=== PATIENT | male | born 2005 | race Caucasian/White ===

== ENCOUNTER 2024-09-21 09:49 | Emergency (ER) | payer OTHER, SELFPAY ==
--- NOTE | 2024-09-21 09:52 | ED.URI ---
HPI - URI/Sore Throat General Chief Complaint: Dental/Oral Stated Complaint: dental pain , rt ear pain Time Seen by Provider: 09/21/24 09:52 Source: patient Mode of arrival: ambulatory Limitations: no limitations History of Present Illness HPI Narrative: Elliot is a 19-year-old male patient presenting to the clinic today with complaints of right upper dental pain/ear pain/sinus pressure. He reports that this has been going on for 2 and half weeks. Denies any runny nose but feels as though he is very congested. No known fever, chills, or body aches. Allergy to penicillin-thinks he may had a rash when he was a baby MD elicited complaint: nasal congestion, sinus pain and other (Dental pain, ear pain) Related Data Allergies Allergy/AdvReac Type Severity Reaction Status Date / Time Penicillins Allergy Unknown Verified 09/21/24 10:33 Review of Systems Review of Systems: Pertinent positives per HPI. Patient denies any fever, chills, rash, headache, visual changes, dizziness, cough, shortness of breath, chest pain, palpitations, nausea, vomiting, diarrhea, constipation, abdominal pain, or any urinary issues. PMFSH Comments At the time of my signature, I reviewed and agree with the nursing past medical, surgical, social, and family history. There is no relevant family history pertinent to the patient complaint. Exam Narrative: General: Well-developed, well nourished, in no apparent distress Head: Normocephalic, atraumatic Eyes: Pupils equally round and reactive to light bilaterally, EOM intact, sclera and conjunctive clear, no discharge, lids normal Ears: TMs intact and congested ear canals ceruminous, no drainage, grossly hearing normal. Nose: Nares patent, clear nasal discharge, moderate inflammation, maxillary sinus tenderness. Mouth: Oral pharynx without lesions or masses, good dentition, MMM. Postnasal drip Neck: Supple, trachea midline, no enlargement of anterior or posterior cervical nodes, no thyroid masses or goiter palpable. Cardio: Regular rate and rhythm, s1 and s2 normal, no murmur appreciated. Resp: Clear to auscultation bilaterally, no rhonchi, rales, wheezing or rubs Course Course Emergency Course: Portions of this record may have been created with voice recognition software. Level of Care: Express Care Visit Vital Signs Vital signs: Vital Signs Temperature 37.1 C 09/21/24 10:36 Pulse Rate 96 09/21/24 10:36 Respiratory Rate 16 09/21/24 10:36 Blood Pressure 127/91 H 09/21/24 10:36 Pulse Oximetry 100 09/21/24 10:36 Temperature 37.1 C 09/21/24 10:36 Pulse Rate 96 09/21/24 10:36 Respiratory Rate 16 09/21/24 10:36 Blood Pressure 127/91 H 09/21/24 10:36 Pulse Oximetry 100 09/21/24 10:36 Vital signs reviewed MDM - URI/Sore Throat MDM Narrative Medical decision making narrative: At the time of visit patient is resting comfortably on the exam table. Patient appears to be nontoxic. Plan: I suspect patient has acute sinusitis. Prescription for clindamycin and prednisone was sent to the pharmacy. Supportive measures were discussed with the patient and they voiced understanding discharge instructions and agrees to treatment plan. Return precautions reviewed Differential Diagnosis Differential diagnosis: Likely upper respiratory infection, otitis media, sinusitis, viral infection, bronchitis, influenza, pharyngitis and other (COVID) Discharge Plan Discharge Clinical Impression: Acute bacterial sinusitis Patient Disposition: Home, Self-Care Condition: Stable Instructions: Antibiotic Form, Rhinosinusitis (ED) Additional Instructions: Take prescription medications only as prescribed-prednisone and clindamycin Increase fluids and stay well hydrated Tylenol/motrin for pain/fever Flonase and OTC antihistamines as directed Vicks vapor rub to open sinuses Sinus rinses for congestion Cepacol spray, cough drops, throat lozenges, warm tea with honey/lemon, gargle salt water to soothe throat BRAT diet for diarrhea Clear liquids x 24 hours then advance as tolerated for nausea/vomiting Go to the ED if you develop a worsening in your condition- high fever not controlled by Tylenol or Motrin, dehydration, weakness, lethargy, shortness of breath, or chest pain. Follow up with your PCP in 3-5 days if symptoms persist. Prescriptions: New clindamycin HCl 300 mg capsule 300 mg PO Q8H 10 Days Qty: 30 0RF prednisone 20 mg tablet 40 mg PO DAILY 5 Days Qty: 10 0RF Follow-up/Referrals: PHYSICIAN,WARD SECRETARY [Primary Care Provider] - Time of Disposition: 10:58 Quality NIHSS Nursing Documentation ED NIHSS nursing documentation: reviewed/agree
[2024-09-21 10:36] VITALS: BP 127/91; PULSE 96; RESP 16; TEMP 37.1; O2SAT 100
== END 2024-09-21 11:05 | disposition home or self-care (01) ==
PROVIDERS: Emergency Provider Nurse Practitioner Family
DX: J01.90 Acute sinusitis, unspecified (principal)
CPT/HCPCS: 99203; G0463

== ENCOUNTER 2025-01-23 11:19 | Outpatient (CLI) | payer OTHER, SELFPAY ==
[2025-01-23 11:58] LABS: Alanine Aminotransferase 71 U/L (6-50); Albumin Level 4.8 g/dL (3.5-5.1); Alkaline Phosphatase 74 U/L (38-126); Anion Gap 12 mmol/L (4-12); Aspartate Amino Transferase 30 U/L (17-59); Bilirubin,Total 0.8 mg/dL (0.2-1.3); Blood Urea Nitrogen 13 mg/dL (9-20); Calcium 9.7 mg/dL (8.4-10.2); Carbon Dioxide 26 mmol/L (22-30); Chloride 102 mmol/L (98-107); Cholesterol 202 mg/dL (0-200); Estimated Glomerular Filt Rate > 60; Glucose 96 mg/dL (65-110); HDL Direct 47 mg/dL; Hemoglobin A1C 4.8 % (<5.7); Potassium 4.1 mmol/L (3.4-5.0); Sodium 140 mmol/L (137-145); Triglycerides 93 mg/dL (<150)
[2025-01-23 12:09] LABS: LDL Cholesterol Direct 118 mg/dL
== END 2025-01-23 11:20 | disposition home or self-care (01) ==
LOC: ANHLAB 11:20
PROVIDERS: PCP Family Medicine; Visit Provider Student in an Organized Health Care Education/Training Program
DX: Z00.00 Encounter for general adult medical examination without abnormal findings (principal); Z13.220 Encounter for screening for lipoid disorders; Z13.1 Encounter for screening for diabetes mellitus
CPT/HCPCS: 36415; 80053; 80061; 83036

== ENCOUNTER 2025-09-10 15:15 | Emergency (ER) | payer OTHER, SELFPAY ==
--- NOTE | 2025-09-10 15:16 | ED_ITS ---
HPI - URI/Sore Throat General Chief Complaint: Upper Respiratory Infection Stated Complaint: SINUS CONGESTION/PRESSURE Time Seen by Provider: 09/10/25 15:16 Source: patient Mode of arrival: ambulatory Limitations: no limitations History of Present Illness HPI Narrative: Elliot is a 20 year old female patient presenting to the clinic today with c/o sinus congestion/pressure x 2 weeks. He reports has had nasal congestion/sinus pressure over the frontal and right maxilla sinuses. Denies any fever, chills, or bodyaches. Denies any chest pain or SOB. Rates pain 4/10 currently. Has taken ibuprofen for the pain. Related Data Allergies Allergy/AdvReac Type Severity Reaction Status Date / Time Penicillins Allergy Unknown Verified 09/10/25 15:24 Review of Systems Review of Systems: Pertinent positives per HPI. Patient denies any fever, chills, rash, headache, visual changes, dizziness, cough, runny nose, sore throat, shortness of breath, chest pain, palpitations, nausea, vomiting, diarrhea, constipation, abdominal pain, or any urinary issues. PMFSH Family History Family History Mother Depression Anxiety Hypertension Father Diabetes mellitus Hypertension Grandparent Hypertension Grandparent Cancer Grandparent Alcoholism Heart disease Social History Social History Second hand tobacco smoke exposure: No Alcohol intake: never Substance use: never Substance use type: does not use Do You Feel Safe in your Home?: Yes Lack of Transportation: No Lack of Food: Never True Current Housing: I Have Housing Concerned About Future Housing: No Difficulty Paying Gas/Electric Bills: No Difficulty Paying for Meds: No Currently Unemployed: No Difficulty w/ Childcare or Family Care: No Living arrangements: with family Occupation/Education: student Gender identity (if verbalized by the patient): Male Comments At the time of my signature, I reviewed and agree with the nursing past medical, surgical, social, and family history. There is no relevant family history pertinent to the patient complaint. Exam Narrative: General: Well-developed, well nourished, in no apparent distress Head: Normocephalic, atraumatic Eyes: Pupils equally round and reactive to light bilaterally, EOM intact, sclera and conjunctive clear, no discharge, lids normal Ears: TMs intact and clear, ear canals clear, no drainage, grossly hearing normal. Nose: Nares patent, yellow nasal discharge, moderate inflammation, right maxillary and frontal sinus tenderness. Mouth: Oropharynx red without lesions or masses, good dentition, MMM. Postnasal drip Neck: Supple, trachea midline, no enlargement of anterior or posterior cervical nodes, no thyroid masses or goiter palpable. Cardio: Regular rate and rhythm, s1 and s2 normal, no murmur appreciated. Resp: Clear to auscultation bilaterally anteriorly and posteriorly, no rhonchi, rales, wheezing or rubs Course Course Emergency Course: Portions of this record may have been created with voice recognition software. Level of Care: Express Care Visit Vital Signs Vital signs: Vital Signs Temperature 36.4 C L 09/10/25 15:23 Pulse Rate 97 09/10/25 15:23 Respiratory Rate 16 09/10/25 15:23 Blood Pressure 148/75 H 09/10/25 15:23 Pulse Oximetry 100 09/10/25 15:23 Temperature 36.4 C L 09/10/25 15:23 Pulse Rate 97 09/10/25 15:23 Respiratory Rate 16 09/10/25 15:23 Blood Pressure 148/75 H 09/10/25 15:23 Pulse Oximetry 100 09/10/25 15:23 Vital signs reviewed MDM - URI/Sore Throat MDM Narrative Medical decision making narrative: At the time of visit patient is resting comfortably on the exam table. Patient appears to be nontoxic. C/o sinus congestion/pressure x 2 weeks. He reports has had nasal congestion/sinus pressure over the frontal and right maxilla sinuses. Denies any fever, chills, or body aches. Denies any chest pain or SOB. Rates pain 4/10 currently. Has taken ibuprofen for the pain. On exam patient has alana tm intact and clear, yellow nasal drainage, frontal and right sinus maxillary tenderness, anterior turbinated inflammation- moderate, oropharynx red, pnd, lungs clear, heart rate regular rate and rhythm. Plan: I suspect patient has bacterial rhinosinusitis. Prescription for clinda mycin and prednisone was sent to the pharmacy. Patient is requesting clindamycin instead of doxycycline as he received the clindamycin last year and a work for him. Supportive measures were discussed with the patient and they voiced understanding discharge instructions and agrees to treatment plan. Return precautions reviewed Differential Diagnosis Differential diagnosis: Likely upper respiratory infection, otitis media, sinusitis, viral infection, bronchitis, influenza, pharyngitis and other (COVID) Discharge Plan Discharge Clinical Impression: Acute bacterial rhinosinusitis Patient Disposition: Home Condition: Stable Instructions: Antibiotic Form, Sinusitis (ED) Additional Instructions: Take prescription medications only as prescribed-prednisone and clindamycin Increase fluids and stay well hydrated May take Tylenol or motrin as directed on bottle for pain/fever May use Flonase 1 spray in each nare daily May take OTC antihistamines such as Zyrtec or Claritin daily as directed on bottle May apply Vicks vapor rub to chest to open sinuses Sinus rinses for congestion Go to the ED if you develop a worsening in your condition- high fever not controlled by Tylenol or Motrin, dehydration, weakness, lethargy, shortness of breath, or chest pain. Follow up with your PCP in 3-5 days if symptoms persist. Patient Language: Faroese Prescriptions: New clindamycin HCl [Cleocin HCl] 300 mg capsule 300 mg PO Q6H 10 Days Qty: 40 0RF prednisone 20 mg tablet 40 mg PO DAILY 5 Days Qty: 10 0RF Follow-up/Referrals: Nelson,MD Razia [Primary Care Provider, [facility]] Time of Disposition: 15:26 Quality NIHSS Nursing Documentation ED NIHSS nursing documentation: reviewed/agree
[2025-09-10 15:23] VITALS: BP 148/75; PULSE 97; RESP 16; TEMP 36.4; O2SAT 100
== END 2025-09-10 15:31 | disposition home or self-care (01) ==
PROVIDERS: Emergency Provider Nurse Practitioner Family; PCP Family Medicine
DX: J01.90 Acute sinusitis, unspecified (principal)
CPT/HCPCS: 99213; G0463